=== PATIENT | female | born 1970 | race Caucasian/White ===

== ENCOUNTER 2022-07-07 15:09 | Emergency (ER) | payer SELFPAY ==
[~2022-07-07] VITALS: Ht 157.5 cm; Wt 72.6 kg
--- NOTE | 2022-07-07 15:40 | NUR ---
C/O ABDOMINAL DISCOMFORT, HX OF IBS. REQUESTING REFFERAL TO GI MD.
--- NOTE | 2022-07-07 16:11 | NUR ---
PATIENT COULDNT PROVIDE URINE YET.
[2022-07-07 16:15] LABS: BASOPHILS # (AUTO) 0.1 K/uL (0.0-0.2); BASOPHILS % (AUTO) 1.1 % (0.0-2.0); EOSINOPHILS % (AUTO) 1.5 % (0.0-6.0); HEMATOCRIT 39 % (33-45); HEMOGLOBIN 12.6 g/dL (11.5-14.8); LYMPHOCYTES # (AUTO) 1.8 K/uL (0.8-4.8); MEAN CORPUSCULAR HGB CONC 33 g/dl (31.0-36.0); MEAN CORPUSCULAR VOLUME 97 fL (82-100); MONOCYTES # (AUTO) 0.5 K/uL (0.1-1.30); MONOCYTES % (AUTO) 7.4 % (2.0-12.0); NEUTROPHILS # (AUTO) 4.4 K/uL (1.8-8.9); PLATELET COUNT (AUTO) 271 K/uL (150-450); RED BLOOD CELL COUNT(AUTO) 3.98 MIL/uL (4.0-5.2); WHITE BLOOD COUNT (AUTO) 6.9 K/uL (4.3-11.0)
[2022-07-07 16:46] LABS: ALBUMIN 3.7 g/dL (3.4-5.0); BILIRUBIN,DIRECT 0.1 mg/dL (0.0-0.2); BILIRUBIN,TOTAL 0.3 mg/dL (0.2-1.0); CALCIUM, SERUM 9.2 mg/dL (8.5-10.1); CREATININE 1.5 mg/dL (0.6-1.3); POTASSIUM 4.1 mmol/L (3.5-5.1); TOTAL PROTEIN, SERUM 7.4 g/dL (6.4-8.2)
--- NOTE | 2022-07-07 18:09 | NUR ---
SPOKE WITH RENEE AT [phone], COMING TO PICK HER UP IN 15 MINUTES, DR [place] AWARE AND OKAYED FOR HER TO WAIT IN [place]
[2022-07-07 18:15] VITALS: BP 142/65
== END 2022-07-07 18:16 | disposition home or self-care (01) ==
LOC: ER 15:21
DX: R10.9 Unspecified abdominal pain (principal); R74.8 Abnormal levels of other serum enzymes; K58.0 Irritable bowel syndrome with diarrhea; R79.89 Other specified abnormal findings of blood chemistry; R93.421 Abnormal radiologic findings on diagnostic imaging of right kidney; F31.9 Bipolar disorder, unspecified
CPT/HCPCS: 76705-TC; 80048-TC; 80076-TC; 83690-TC; 85025-TC